=== PATIENT | male | born 1965 | race Caucasian/White ===

== ENCOUNTER 2019-05-16 07:31 | Emergency (ER) | payer MEDICARE ==
[~2019-05-16] VITALS: Ht 188 cm; Wt 99.1 kg
[2019-05-16 07:33] VITALS: Ht 188 cm; Wt 99.1 kg
[2019-05-16] MEDS ORDERED: COREG25 MG PO (07:35)
[2019-05-16] MEDS ORDERED: ATARAX 25 MG TA25 MG PO (07:36)
[2019-05-16] MEDS ORDERED: ZESTRIL10 MG PO (07:36)
[2019-05-16] MEDS ORDERED: PRAVACHOL20 MG (07:36)
[2019-05-16] MEDS ORDERED: TRAZODONE HCL150 MG PO (07:37)
[2019-05-16] MEDS ORDERED: ZYLOPRIM300 MG PO (07:37)
[2019-05-16 08:17] LABS: BASOPHILS 0.4 % (0-2); EOSINOPHILS 5.1 % (0-7); HEMATOCRIT 39.9 % (42.0-54.0); HEMOGLOBIN 13.8 g/dL (13.5-17.5); IMMATURE GRANULOCYTES 0.2 % (0-5); LYMPHOCYTES 28.6 % (15-50); MCH 33.7 pg (26.0-34.0); MCHC 34.6 g/dL (31.0-37.0); MCV 97.3 fL (80.0-100.0); MONOCYTES 6.5 % (2-11); NEUTROPHILS 59.2 % (40-80); PLATELET COUNT 171 10x3/uL (130-400); RDW 12.9 % (11.5-14.5); WBC 10.2 10x3/uL (4.8-10.8)
[2019-05-16 08:28] LABS: ANION GAP 13.6 mmol/L (8-16); CALCIUM 8.8 mg/dL (8.5-10.1); CARBON DIOXIDE 27.5 mmol/L (21.0-32.0); CREATININE - SERUM 1.2 mg/dL (0.6-1.3); POTASSIUM - SERUM 4.1 mmol/L (3.5-5.1)
[2019-05-16 08:28] LABS: APPEARANCE CLEAR (CLEAR); BACTERIA FEW /hpf (NEGATIVE); BILIRUBIN NEGATIVE (NEGATIVE); COLOR YELLOW (YELLOW); EPITHELIAL CELLS OCC /hpf (0-5); GLUCOSE NEGATIVE (NEGATIVE); KETONE NEGATIVE (NEGATIVE); NITRITE NEGATIVE (NEGATIVE); PROTEIN NEGATIVE (NEGATIVE); RED CELLS - URINE OCC /hpf (0-5); SPECIFIC GRAVITY 1.015 (1.005-1.020); UROBILINOGEN NORMAL (NORMAL); WHITE CELLS - URINE 0-5 /hpf (NEGATIVE)
[2019-05-16 08:34] LABS: ALBUMIN 3.8 g/dL (3.4-5.0); BILIRUBIN - TOTAL 0.37 mg/dL (0.2-1.3); PROTEIN - SERUM 7.8 g/dL (6.4-8.2)
[2019-05-16] MEDS ORDERED: HYDROCODON-ACE1 EAC2 PO (10:36)
[2019-05-16 11:27] VITALS: BP 139/81
== END 2019-05-16 11:32 | disposition home or self-care (01) ==
LOC: D.ER 07:31
PROVIDERS: Family Medicine
DX: S30.1XXA Contusion of abdominal wall, initial encounter (principal); Y08.02XA Assault by strike by baseball bat, initial encounter; Y93.9 Activity, unspecified; Y92.9 Unspecified place or not applicable; S62.639A Displaced fracture of distal phalanx of unspecified finger, initial encounter for closed fracture; S51.819A Laceration without foreign body of unspecified forearm, initial encounter; S02.2XXA Fracture of nasal bones, initial encounter for closed fracture; I10 Essential (primary) hypertension; E78.5 Hyperlipidemia, unspecified; Z72.0 Tobacco use

== ENCOUNTER 2020-02-22 11:06 | Day surgery (SDC) | payer MEDICARE, MEDICAID ==
[~2020-02-22] VITALS: Ht 188 cm; Wt 104.5 kg
[~2020-02-22 11:06] MED LIST: ATARAX 25 MG TA25 MG PO; COREG25 MG PO; HYDROCODON-ACE1 EAC2 PO; PRAVACHOL20 MG; TRAZODONE HCL150 MG PO; ZESTRIL10 MG PO; ZYLOPRIM300 MG PO
[2020-02-22 12:07] LABS: BASOPHILS 0.5 % (0-2); EOSINOPHILS 2.2 % (0-7); HEMATOCRIT 43.7 % (42.0-54.0); HEMOGLOBIN 14.4 g/dL (13.5-17.5); IMMATURE GRANULOCYTES 0.2 % (0-5); LYMPHOCYTES 26.2 % (15-50); MCH 33.6 pg (26.0-34.0); MCV 102.1 fL (80.0-100.0); MEAN PLATELET VOLUME 9.6 fL (7.4-10.4); MONOCYTES 6.4 % (2-11); NEUTROPHILS 64.5 % (40-80); PLATELET COUNT 182 10x3/uL (130-400); RBC 4.28 10x6/uL (4.20-6.10); RDW 13.8 % (11.5-14.5); WBC 6.4 10x3/uL (4.8-10.8)
[2020-02-22 12:19] LABS: APTT 30.2 SECONDS (22.8-39.4); INR 1.12 (0.85-1.17); PROTIME 14.3 SECONDS (11.6-15.0)
[2020-02-22 12:35] LABS: ALBUMIN 3.5 g/dL (3.4-5.0); ANION GAP 10.7 mmol/L (8-16); CALCIUM 8.9 mg/dL (8.5-10.1); CARBON DIOXIDE 29.6 mmol/L (21.0-32.0); CREATININE - SERUM 1.2 mg/dL (0.6-1.3); POTASSIUM - SERUM 4.3 mmol/L (3.5-5.1); PROTEIN - SERUM 7.9 g/dL (6.4-8.2)
[2020-02-22 13:01] VITALS: Ht 188 cm; Wt 104.5 kg
[2020-02-22] MEDS ORDERED: ISOSORBIDE MONO30 M1 PO (13:12)
[2020-02-22] MEDS ORDERED: K-DUR20 MEQ PO (13:12)
[2020-02-22] MEDS ORDERED: ALDACTONE50 MG PO (13:13)
[2020-02-22] MEDS ORDERED: LASIX40 MG PO (13:13)
--- NOTE | 2020-02-22 14:00 | NUR ---
PROCEDURE CANCELLED BY DOCTOR DUE TO NOT BEING NECESSARY. FOOD SERVED TO PATIENT, RIGHT FOREARM PIV DC'D WITH TIP INTACT. PATIENT DRESSING IN PERSONAL CLOTHING
== END 2020-02-22 14:20 | disposition home or self-care (01) ==
LOC: D.SP 11:06 → D.CT 13:00 → D.SP 13:00
PROVIDERS: Radiology Diagnostic Radiology; ATTEND Nurse Practitioner
DX: R18.8 Other ascites (principal); R10.84 Generalized abdominal pain; F10.10 Alcohol abuse, uncomplicated; Z12.11 Encounter for screening for malignant neoplasm of colon; I50.9 Heart failure, unspecified